=== PATIENT | male | born 1980 | race Caucasian/White ===

== ENCOUNTER 2018-02-08 23:26 | Emergency (ER) | payer OTHER ==
[~2018-02-08] VITALS: Ht 170.2 cm; Wt 69.9 kg
[2018-02-09] MEDS ORDERED: CIPRO500 MG PO (06:46)
[2018-02-09] MEDS ORDERED: LEVSIN/SL0.125 MG SL (06:46)
== END 2018-02-09 07:10 | disposition home or self-care (01) ==
LOC: ER 23:26
DX: K57.90 Diverticulosis of intestine, part unspecified, without perforation or abscess without bleeding (principal); R10.32 Left lower quadrant pain